=== PATIENT | male | born 1950 | race Caucasian/White ===

== ENCOUNTER 2018-02-24 09:27 | Emergency (ER) | payer MEDICARE, OTHER ==
--- NOTE | 2018-02-24 10:49 | ED Physician Documentation ---
PD HPI LOWER EXT INJURY - Stated complaint Stated Complaint: L FOOT PX - Chief complaint Chief Complaint: Ext Problem - History obtained from History obtained from: Patient - History of Present Illness PD HPI LOW EXT INJURY LOCATION: Left, Ankle (dorsum/lateral), Foot Type of injury: Other (gradual onset without apparent injury). No: Fall, Twist Timing - onset: How many days ago (few) Timing - duration: Days (few) Timing - details: Gradual onset, Still present Worsened by: Moving, Other (most of the pain is just with weight bearing, and step off part of gait.). No: Palpating Associated symptoms: No: Weakness, Numbness, Swelling, Discolored Contributing factors: No: Prior ortho surgery Similar symptoms before: Has not had sx before Recently seen: Not recently seen Review of Systems Constitutional: denies: Fever, Chills, Myalgias Skin: denies: Rash, Lesions Neurologic: denies: Focal weakness, Numbness PD PAST MEDICAL HISTORY - Past Medical History Past Medical History: Yes Musculoskeletal: None Other Past Medical History: fibrous hysteo cytoma left lateral leg 1987 - Past Surgical History Past Surgical History: Yes Derm: Skin cancer surgery - Present Medications Home Medications: Ambulatory Orders Medication Instructions Recorded Confirmed Celecoxib [Celebrex] 400 mg PO DAILY 02/24/18 02/24/18 Dexamethasone [Decadron] 4 mg PO DAILY #5 tablet 02/24/18 - Allergies Allergies/Adverse Reactions: Allergies Allergy/AdvReac Type Severity Reaction Status Date / Time aspirin Allergy Anaphylaxis Verified 02/24/18 09:38 - Social History Does the pt smoke?: No Smoking Status: Never smoker - Immunizations Immunizations are current?: Yes PD ED PE NORMAL - Vitals Vital signs reviewed: Yes - General General: Alert and oriented X 3, No acute distress, Well developed/nourished - Derm Derm: Normal color, Warm and dry - Extremities Extremities: Other (dorslateral proximal foot with mild tenderness, without redness nor warmth. No swelling. ) - Neuro Neuro: Alert and oriented X 3, No motor deficit, No sensory deficit Results - Vitals Vitals: Oxygen O2 Source Room air - Rads (name of study) foot xray Radiology: Prelim report reviewed, EMP read contemporaneously PD MEDICAL DECISION MAKING - ED course Complexity details: reviewed results, considered differential (seems like tendonitis. Dorsum of foot, also consider gout but not red/warm. ), d/w patient - Sepsis Event Vital Signs: Oxygen O2 Source Room air Departure - Departure Disposition: 01 Home, Self Care Clinical Impression: Foot tendinitis Condition: Stable Record reviewed to determine appropriate education?: Yes Follow-Up: BLANCA FISHER [Primary Care Provider] - Prescriptions: Dexamethasone [Decadron] 4 mg PO DAILY #5 tablet Comments: Use the orthotic shoe when ambulating for the next week or so. Be sure you have a shoe on the other foot of comparable heel height. Continue usual anti- inflammatory. Add Decadron daily for 5 more days. Recheck if not improved during that time. I am thinking there is some inflammation of the muscles and tendons through the foot (tendinitis) or possible mild gout. This would be treated comfortably with the above medicines. Discharge Date/Time: 02/24/18 12:42
[2018-02-24] MEDS ORDERED: HYDROcod/ACETAM 5/325 MG TABLET PO STA (11:10)
--- NOTE | 2018-02-24 11:59 | XRAY Report ---
Reason: foot pain with walking abruptly; no obvious injury Procedure Date: 02/24/2018 Accession Number: [id number] / [id number] Procedure: XR - Foot 3 View LT CPT Code: FULL RESULT: EXAM: LEFT FOOT RADIOGRAPHY EXAM DATE: 02/24/2018 11:28 AM. CLINICAL HISTORY: Pain on top of foot COMPARISON: None. TECHNIQUE: 3 views. FINDINGS: Bones: No fractures or bone lesions. Joints: No subluxations. Soft Tissues: There is calcification of the Achilles tendon. IMPRESSION: Calcific Achilles tendinopathy RADIA
[2018-02-24 12:13] VITALS: BP 154/91
[2018-02-24] MEDS ORDERED: DEXAMETHASONE 10 MG/ML VIAL PO STA (12:18)
== END 2018-02-24 12:42 | disposition home or self-care (01) ==
LOC: ED 09:27
DX: M65.272 Calcific tendinitis, left ankle and foot (principal); Z79.82 Long term (current) use of aspirin
CPT/HCPCS: 99283